=== PATIENT | male | born 1940 | race Caucasian/White ===

== ENCOUNTER 2024-01-06 09:36 | Outpatient (CLI) | payer MEDICARE, OTHER, SELFPAY ==
--- NOTE | 2024-01-06 09:43 | USCV_ITS ---
Bertrand Alexander Age: 83 Gender: M : 1940 Exam Date: 01/06/2024 10:59 Ordering Phys: Carmelo David DO Technologist: Lucien Slaughter Exam Location: [facility] [place] Indication: LE Swelling and Pain RIGHT LEFT Brachial 193.00 mmHg Brachial mmHg Pressure (mmHg) Waveform Pressure (mmHg) Waveform 205.00 EDUCATION CONSULTANT 186.00 203.00 DPA 193.00 1.06 Ankle/Brachial Index 1.00 152.00 Pre-Exercise Toe Pressure 170.00 0.79 Pre-Exercise Toe/Brachial Index 0.88 FINDINGS Resting CHRIS 1.06 on the right side and 1.0 on the left side Resting TBI of 0.79 on the right side and 0.88 on the left side CONCLUSIONS Normal resting ABIs and TBIs bilaterally No evidence of any significant arterial obstruction, based on the above findings. Dr Caitie Ruffin MD [facility] (Electronically Signed) Final Date: 07 January 2024 16:52 S
== END 2024-01-06 09:37 | disposition home or self-care (01) ==
LOC: RAD 09:38
PROVIDERS: Family Provider Family Medicine; Visit Provider Electrodiagnostic Medicine
DX: R22.41 Localized swelling, mass and lump, right lower limb (principal); I73.9 Peripheral vascular disease, unspecified
CPT/HCPCS: 93922

== ENCOUNTER → 2024-07-04 13:24 | Outpatient (BNVA) | payer MEDICARE, OTHER, SELFPAY | PROVIDERS: Family Provider Family Medicine; PCP Electrodiagnostic Medicine; Visit Provider Student in an Organized Health Care Education/Training Program | DX: M25.561 Pain in right knee (principal); M17.0 Bilateral primary osteoarthritis of knee | CPT/HCPCS: 73560; 73565 ==

== ENCOUNTER 2024-07-14 09:05 | Outpatient (CLI) | payer MEDICARE, OTHER, SELFPAY ==
--- NOTE | 2024-07-14 09:00 | CT_ITS ---
WS: [id number] CT RIGHT knee, noncontrast HISTORY: RIGHT TOTAL KNEE ARTHROPLASTY TECHNIQUE: Protocol for [facility] total knee replacement has been obtained. This includes axial imaging th rough the RIGHT hip, RIGHT knee and RIGHT ankle. DLP: 1094.72 mGy.cm COMPARISON: Radiograph 07/04/2024 Pelvis: Degenerative air in the SI joints. Mild osteopenia. No destructive bone lesions. Moderate sig moid diverticulosis. RIGHT knee: Moderate tricompartment osteoarthritis. Joint spaces are narrowed with small marginal ost eophytes. No fracture. Small suprapatellar joint effusion. RIGHT ankle: Negative. CT/CT knee RT [facility] [id number] IMPRESSION: CT imaging provided for [facility] robotic total knee replacement.
== END 2024-07-14 09:06 | disposition home or self-care (01) ==
LOC: RAD 09:06
PROVIDERS: Family Provider Family Medicine; PCP Electrodiagnostic Medicine; Visit Provider Student in an Organized Health Care Education/Training Program
DX: M17.11 Unilateral primary osteoarthritis, right knee (principal); Z96.651 Presence of right artificial knee joint; M25.461 Effusion, right knee; M25.761 Osteophyte, right knee
CPT/HCPCS: 73700

== ENCOUNTER 2024-07-31 10:22 | Outpatient (CLI) | payer MEDICARE, OTHER, SELFPAY ==
[2024-07-31 10:58] LABS: Basophils % 0.3 %; Eosinophils # 0.1 10^3/uL (0.0-0.8); Eosinophils % 0.9 %; Hematocrit 39.7 % (37-53); Lymphocytes # 1.2 10^3/uL (0.8-4.8); Lymphocytes % 12.5 %; Mean Corpuscular Hemoglobin 31.8 pg (27-33); Mean Corpuscular Volume 96.4 fl (82-101); Monocytes # 0.8 10^3/uL (0.2-0.9); Monocytes % 8.2 %; Neutrophils # 7.43 10^3/uL (1.8-7.7); Neutrophils % 77.8 %; Nucleated Red Blood Cells % 0 %; Platelet Count 191 10^3/cmm (157-399); Red Blood Count 4.12 10^6/uL (3.85-5.65); Red Cell Distribution Width 12.9 % (12.1-15.1); White Blood Count 9.55 10^3/uL (3.29-11.43)
[2024-07-31 11:01] LABS: Bilirubin Urine Negative (Negative); Blood Urine Negative (Negative); Glucose Urine UA Negative (Normal); Ketones Urine Negative (Negative); Leukocyte Esterase Urine Negative (Negative); Nitrate Urine Negative (Negative); Protein Urine Negative (Negative); Specific Gravity, Urine 1.021 (1.005-1.030); Urine Appearance Clear (CLEAR); Urine Color Yellow (Yellow); Urobilinogen Urine 0.2 mg/dL (Negative); pH Urine 5.5 (5-7)
[2024-07-31 11:09] LABS: Add Urine Microscopic? YES; Bacteria Urine None Seen /hpf; Hyaline Casts Urine 0.81 /lpf; RBC Urine 0-2 /hpf (0-2); Squamous Epithelial Cell Urine 0-5 /hpf (0-5); WBC Urine 0-5 /hpf (0-5)
[2024-07-31 11:58] LABS: Alanine Aminotransferase 20 U/L (0-41); Albumin Level 4.1 g/dL (3.5-5.2); Alkaline Phosphatase 67 U/L (40-130); Anion Gap 13.2 (5-19); Aspartate Amino Transferase 14 U/L (0-40); Blood Urea Nitrogen 22 mg/dL (8-23); Calcium 8.9 mg/dL (8.5-10.5); Carbon Dioxide 27 mmol/L (22-29); Chloride 106 mmol/L (98-107); Globulin 2.2 g/dL (1.3-4.6); Glucose 101 mg/dL (65-115); Osmolality Calculated 297 mOsm/kg (285-295); Potassium 4.2 mmol/L (3.5-5.1); Sodium 142 mmol/L (136-145); Total Bilirubin 0.3 mg/dL (0.15-1.2); Total Protein 6.3 g/dL (6.6-8.7)
== END 2024-07-31 10:23 | disposition home or self-care (01) ==
LOC: LAB 10:23
PROVIDERS: Family Provider Family Medicine; PCP Electrodiagnostic Medicine; Visit Provider Student in an Organized Health Care Education/Training Program
DX: Z01.818 Encounter for other preprocedural examination (principal)
CPT/HCPCS: 36415; 80053; 81001; 85025

== ENCOUNTER → 2024-08-07 11:46 | Outpatient (BNVA) | payer MEDICARE, OTHER, SELFPAY | PROVIDERS: Family Provider Family Medicine; PCP Electrodiagnostic Medicine; Visit Provider Family Medicine | DX: Z01.818 Encounter for other preprocedural examination (principal) | CPT/HCPCS: 93005 ==

== ENCOUNTER 2024-08-16 10:11 | Observation (INO) | payer MEDICARE, OTHER, SELFPAY ==
[2024-08-16] VITALS (17 sets, daily range): BP systolic 134–197; BP diastolic 74–95; PULSE 62–81; RESP 14–19; TEMP 36.2–36.8; O2SAT 91–98; BMI 30.8
[2024-08-16] MEDS: lactated ringers 500 ML IV (06:29)
[2024-08-16] MEDS: acetaminophen 1,000 MG/100 ML PIGGYBACK 400 MG IV ×3 (06:30→21:29)
[2024-08-16] MEDS: ketorolac 30 mg/mL INJ IVP (06:30)
[2024-08-16] MEDS: sodium chloride 0.9% 1,000 ML 30 ML IV (06:39)
[2024-08-16 07:05] LABS: Basophils # 0.1 10^3/uL (0.0-0.1); Basophils % 0.8 %; Eosinophils # 0.1 10^3/uL (0.0-0.8); Hematocrit 38.9 % (37-53); Lymphocytes # 1.4 10^3/uL (0.8-4.8); Lymphocytes % 22.1 %; Mean Corpuscular HGB Conc 33.2 g/dL (30-55); Mean Corpuscular Hemoglobin 31.7 pg (27-33); Mean Corpuscular Volume 95.6 fl (82-101); Mean Platelet Volume 9.2 fL (7.4-10.4); Monocytes # 0.6 10^3/uL (0.2-0.9); Monocytes % 8.8 %; Neutrophils # 4.21 10^3/uL (1.8-7.7); Neutrophils % 65.8 %; Nucleated Red Blood Cells % 0 %; Platelet Count 181 10^3/cmm (157-399); Red Blood Count 4.07 10^6/uL (3.85-5.65); Red Cell Distribution Width 12.9 % (12.1-15.1); White Blood Count 6.39 10^3/uL (3.29-11.43)
--- NOTE | 2024-08-16 07:11 | W.PM.OPSFHP ---
Same Day Surgery H&P Indication for Procedure/HPI DATE OF PROCEDURE: August 16, 2024 CHIEF COMPLAINT/INDICATIONFOR SURGICAL PROCEDURE: Right knee degenerative joint disease PREOP DIAGNOSIS: Right knee degenerative joint disease PLANNED PROCEDURE: Operation Date: 08/16/24 07:45 Proposed Procedures p Norman Robot Total Knee Arthroplasty(Right) - Gonzalo Wilson DO Medications/Allergies* Home Medications Medication Instructions Recorded Confirmed Type acetaminophen 650 mg 650 mg PO Q12H 07/04/24 08/15/24 History tablet,extended release (Arthritis Pain Relief (acetaminophen) ER) antiarthritic combination no.2 900 900 mg PO DAILY 07/04/24 08/15/24 History mg tablet (glucosamine-chondroitin) atorvastatin 40 mg tablet 40 mg PO DAILY 07/04/24 08/15/24 History brimonidine 0.2 % eye drops 1 drp ophthalmic (eye) Q8H 07/04/24 08/15/24 History lisinopril 40 mg tablet 40 mg PO DAILY 07/04/24 08/15/24 History multivitamin (Daily Multi-Vitamin 1 tab PO DAILY 07/04/24 08/15/24 History tablet) niacin 400 mg (inositol niacinate 1 cap PO DAILY 07/04/24 08/15/24 History 500 mg) capsule vit C,E,zinc,copper-ixsrk9o 250 1 cap PO DAILY 07/04/24 08/15/24 History mg-lutein 5 mg-zeaxanthin 1 mg capsule (50 Plus Adult Eye Health) aspirin 325 mg tablet 325 mg PO DAILY 08/07/24 08/15/24 History metoprolol tartrate 100 mg tablet 100 mg PO BID 08/07/24 08/15/24 History Allergies/Adverse Reactions Allergy/AdvReac Type Severity Reaction Status Date / Time diphenhydramine Allergy Intermediate confusion Verified 08/16/24 06:32 [From Benadryl Allergy] Sulfa (Sulfonamide Allergy Intermediate ALGY-Hives Verified 08/16/24 06:32 Antibiotics) sulfamethoxazole Allergy Intermediate ALGY-Rash Verified 08/16/24 06:32 [From Bactrim] trimethoprim [From Bactrim] Allergy Intermediate ALGY-Rash Verified 08/16/24 06:32 Pertinent History/Comorbid Conditions* Social History Smoking and tobacco/nicotine status: never used tobacco/nicotine Pertinent Exam Findings alert, oriented x 3, operative site marked and procedure specific exam findings Please refer to detailed orthopedic examination on 07/04/2024: Right knee examination: Examination of the right knee demonstrates patient has a 5 to 10 degree varus deformity. This is correctable on examination and pain associated with this. Patient is stable with Darnell's examination. He has decreased range of motion of the knee and guarding secondary to pain and discomfort. It is diffusely about the knee with crepitus underneath the patella on knee range of motion as well as tenderness over the retropatellar space. Patient has tenderness to palpation over the medial and lateral joint lines. Stable varus valgus stress. Mild palpable joint effusion. Recommendations Surgery/Procedure today Other Plans: Patient is here today is clear the preoperative clearance process and ready proceed with a right total knee arthroplasty?Norman robotic assisted. Has been medically optimized through the preoperative clinic. His last injection was back in March is over 90 days out from his injection. He is in no change in his health and is clear the preoperative clearance process. At this point time they understand the ins and outs of procedure the risk benefits complication alternatives of surgery and through shared decision-making elects proceed with surgical invention today. All questions have been answered at this time. Coding Level of Care Code Acute Code for Chg Fwd
[2024-08-16 07:16] LABS: Blood Urea Nitrogen 27 mg/dL (8-23); Calcium 8.7 mg/dL (8.5-10.5); Carbon Dioxide 25 mmol/L (22-29); Chloride 109 mmol/L (98-107); Creatinine Clr Calc Pharmacy 47.6479; Glucose 108 mg/dL (65-115); Osmolality Calculated 302 mOsm/kg (285-295); Sodium 143 mmol/L (136-145)
[2024-08-16 07:22] LABS: Anion Gap 13.3 (5-19); Potassium 4.3 mmol/L (3.5-5.1)
--- NOTE | 2024-08-16 07:51 | ANES.PREANE2 ---
Pre-Anesthetic Assessment Height/Weight: Height 1.78 m Weight 97.522 kg Temp Pulse Resp BP Pulse Ox O2 Del Method 97.6 F 62 18 197/90 96 Room Air 08/16/24 06:25 08/16/24 06:25 08/16/24 06:25 08/16/24 06:25 08/16/24 06:25 08/16/24 06:25 Preop Diagnosis: Right knee degenerative joint disease Operation Date: 08/16/24 07:45 Proposed Procedures p Norman Robot Total Knee Arthroplasty(Right) - Gonzalo Wilson DO Familial anesthetic complications: None Was Beta Tracee taken within 24 hours: Yes Was Clonidine taken within 24 hours: N/A Last intake: Intake Last Liquid Date 08/15/24 Last Liquid Time 23:00 Last Solid Date 08/15/24 Last Solid Time 23:00 Social No alcohol and No tobacco Exam alert, oriented x 3, clear to auscultation bilaterally and regular rate & rhythm Airway Mallampati: Class II Dentition: false (upper) and other (2 lowers broken) CV/HEM Hypertension Metabolic Hyperlipidemia Anesthetic Plan ASA status: 2 Anesthesia: Regional (specify below) Risk of > 500 ml blood loss (7ml/kg in children): No Medications/Allergies Home Medications Medication Instructions Recorded Confirmed Last Taken Type acetaminophen 650 mg 650 mg PO Q12H 07/04/24 08/15/24 08/15/24 History tablet,extended release (Arthritis Pain Relief (acetaminophen) ER) antiarthritic combination no.2 900 900 mg PO DAILY 07/04/24 08/15/24 08/15/24 History mg tablet (glucosamine-chondroitin) atorvastatin 40 mg tablet 40 mg PO DAILY 07/04/24 08/15/24 08/15/24 History brimonidine 0.2 % eye drops 1 drp ophthalmic (eye) Q8H 07/04/24 08/15/24 08/15/24 History lisinopril 40 mg tablet 40 mg PO DAILY 07/04/24 08/15/24 08/15/24 History multivitamin (Daily Multi-Vitamin 1 tab PO DAILY 07/04/24 08/15/24 08/09/24 History tablet) niacin 400 mg (inositol niacinate 1 cap PO DAILY 07/04/24 08/15/24 08/15/24 History 500 mg) capsule vit C,E,zinc,copper-eftfa0k 250 1 cap PO DAILY 07/04/24 08/15/24 08/09/24 History mg-lutein 5 mg-zeaxanthin 1 mg capsule (50 Plus Adult Eye Health) aspirin 325 mg tablet 325 mg PO DAILY 08/07/24 08/15/24 08/11/24 History metoprolol tartrate 100 mg tablet 100 mg PO BID 08/07/24 08/15/24 08/16/24 History Allergies Allergy/AdvReac Type Severity Reaction Status Date / Time diphenhydramine Allergy Intermediate confusion Verified 08/16/24 06:32 [From Benadryl Allergy] Sulfa (Sulfonamide Allergy Intermediate ALGY-Hives Verified 08/16/24 06:32 Antibiotics) sulfamethoxazole Allergy Intermediate ALGY-Rash Verified 08/16/24 06:32 [From Bactrim] trimethoprim [From Bactrim] Allergy Intermediate ALGY-Rash Verified 08/16/24 06:32 [facility] Anesthesia Social History Smoking and tobacco/nicotine status: never used tobacco/nicotine Data Anesthesia 08/16/24 06:45 08/16/24 06:45 Short CBC 08/16/24 Range/Units 06:45 WBC 6.39 (3.29-11.43) 10^3/uL Hgb 12.90 (11.27-16.99) g/dL Hct 38.9 (37-53) % MCV 95.6 (82-101) fl Plt Count 181 (157-399) 10^3/cmm Neut % (Auto) 65.8 % Neut # (Auto) 4.21 (1.8-7.7) 10^3/uL BMP 08/16/24 06:45 Sodium 143 Potassium 4.3 Chloride 109 H Carbon Dioxide 25 BUN 27 H Creatinine 1.4 H Glucose 108 Calcium 8.7 Blood Bank 08/16/24 06:35 Blood Type A Positive Rho(D) Type Rh positive Antibody Screen Negative Cardiac Studies: No Data to Display
--- NOTE | 2024-08-16 07:52 | ANES.PROC ---
Anesthesia Procedures Procedure/Date: 08/16/24 Nerve Block ^: Nerve Block 1: Main Anesthesia: general anesthesia Time Out Performed: Yes Consent: requested by attending/covering physician, from patient, from other, risks and benefits reviewed and patient agrees to proceed Nerve block location: adductor canal (R) Anesthesia monitors applied: pulse oximetry, EKG, BP cuff and oxygen Nerve block position: supine Anesthetic Used: ropivicaine 0.5% (30 ml) and with decadron (4 mg) Ultrasound used to: recognize landmarks and visualize and ID femerol nerve Nerve Stimulator Used?: No Interscalene/Femoral BLK: 4 stimuplex 21 g needle used for position and inplane approach, visualize local anesthetic spread and no vascular puncture identified Injection: neg aspiration of heme Patient Tolerated Procedure: well Complications: none
--- NOTE | 2024-08-16 08:14 | PC.NURSE ---
pt prepared for adductor canal block for right total knee surgery. Pt was placed on 2L nasal cannula, heart sensors were placed and oxygen sensor was placed for monitoring. The time out was performed identifying pt name and at 0745. The insertion area was cleaned and prepped for the injection. The block was placed using ultrasound 30cc of 0.5% ropivicain was injected into the right adductor canal for pt post surgery pain control
[2024-08-16] MEDS: ceFAZolin 2,000 MG in sodium chloride 0.9% (plus) 50 ML 100 MG IV (08:15)
[2024-08-16] MEDS: tranexamic acid 1,000 mg/10mL SDV 1000 MG IV (08:35)
[2024-08-16] MEDS: ROPivacaine 0.2% Premix 100 mL 200 MG XX (09:03)
[2024-08-16] MEDS: tranexamic acid 1,000 mg/10mL SDV 1000 MG IRRIGATION (09:04)
[2024-08-16] MEDS: ketorolac 30 mg/mL INJ XX (09:05)
[2024-08-16] MEDS: EPINEPHrine 1 mg/mL INJ XX (09:05)
[2024-08-16] MEDS: vancomycin 1,000 MG SDV 1000 MG XX (09:06)
--- NOTE | 2024-08-16 10:28 | XRR_ITS ---
PROCEDURE INFORMATION: Exam: XR Right Knee Exam date and time: 08/16/2024 10:39 AM Age: 84 years old Clinical indication: Device placement; Joint replacement hardware; Prior surgery; Surgery date: Post-operative (0-2 days); Surgery type: R tka; Additional info: S/P R tka TECHNIQUE: Imaging protocol: Radiologic exam of the right knee. Views: 1 or 2 views. COMPARISON: 1. CT knee RT [facility] [id number] 07/14/2024 9:16 AM 2. CR XR knees AP WB w RT lmt ORTH 07/04/2024 1:41 PM FINDINGS: Bones/joints: Interval knee arthroplasty. No additional new appearing displaced fracture nor dislocation seen. Soft tissues: Gas, fluid project about knee. XR/XR knee RT 1-2V [id number] IMPRESSION: Post knee arthroplasty.
--- NOTE | 2024-08-16 10:29 | P.OP_ITS ---
Operative Report Date of procedure: August 16, 2024 Surgeon: Gonzalo Wilson DO Camera Machinist: Miguel Wilson PA-C: PA was necessary for assistance in this case with leg positioning retraction and protection of neurovascular structures as well as assistance in implantation wound closure and dressing application. Procedure: Preoperative diagnosis: Right knee degenerative joint disease Post-op diagnosis: Same Procedure done: Right total knee arthroplasty, cemented?robotic assisted Norman Implants: [place] triathlon size 5 femur CR cemented?Right [place] triathlon size? 6 tibia universal baseplate cemented Wilber triathlon asymmetric patella size 32 mm [place] triathlon polyethylene 10mm Surgeon: Gonzalo Wilson DO Estimated blood?loss: 50 mL Tourniquet 59min IV fluids: 1300 mL Urine output: 300 mL Complications: None Condition: stable Disposition: floor Brief History: Patient is a 84-year-old male with with chronic?Right knee degenerative joint di sease.? Patient has been worked up in the outpatient setting in the orthopedic office at this point time through shared decision making given? [id number] arthritis as well as failed conservative treatment, and pt would?like to proceed with a?Right total knee arthroplasty.? Through shared decision making elected to proceed with surgical intervention for?Right total knee arthroplasty.? We talked about continued conservative treatment and surgical intervention as far as the risk benefits complications alternatives surgical and nonsurgical treatment options.? At this point time understanding patient risks with surgery he agrees to proceed with surgical intervention.? Once again? risk with surgery include but are not?limited to make it better make it worse blood clot, heart attack, stroke, on the table, infection, injury to nerves or vessels, persistent pain, arthrofibrosis, implant failure.? Understanding these risks patient agrees to proceed with surgical intervention consent was obtained in the office.? All questions answered. Procedure: Patient was seen and evaluated in the preoperative holding area.? Consent was reviewed and signed with patient with plan for?Right total knee arthroplasty.? All questions answered.? Correct extremity marked.? Patient seen and evaluated by the anesthesia department and once cleared for surgery was taken back to the operative suite.? Patient was placed into a supine position on the OR table.? All bony prominences were well-padded.? Patient was appropriately secured to the bed.? Patient underwent anesthesia per the anesthesia department.? Patient received spinal anesthesia and? Benavidez catheter was placed.? A nonsterile tourniquet was applied to the?Right thigh.? At this point in time a final timeout performed.? Patient received appropriate preoperative antibiotics and TXA. Next the?Right?lower extremity was then prepped and draped in standard orthopedic fashion. Esmarch tourniquet was used exsanguinate the?Right?lower extremity.? Tourniquet was insufflated to 250 mmHg. A standard anterior incision was made over midline of the knee.? Sharp scalpel excision through skin and subcutaneous tissue full-thickness skin flaps were made.? Fascia was elevated off of the extensor retinaculum was stable with medial parapatellar arthrotomy was then made.? The performed standard sequential releases..? Immediately on entry into the joint patient was found to have severe eburnated bone and tricompartmental arthritic changes noted.? With significant osteophyte formation.? Next the the patella was then stuffed and the knee was th en flexed.?? Kyle was placed superiorly around the anterior aspect of the femur this was freed of synovium and I subsequently then placed by 2 femur pins to establish my femur arrays for the Norman robot.? These were then placed bicortically and? femur array was then appropriately secured with appropriate visualization.? Next attention was turned towards the tibial rays.? These were then drilled sequentially bicortically in parallel fashion and intraincisional.? I then placed my guide as well as my tibial array on in place.? This was appropriately secured and had excellent visualization with the Norman robot.? Next the tibial checkpoint as well as femur checkpoint were then placed.? At this point time I then subsequently established my head center as well as my medial?lateral malleoli as well as my checkpoints.? Next utilizing standard Norman technology I then mapped out the appropriate points and confirmation points around the femur as well as the tibia in standard fashion.? Once this was then done I then removed all osteophytes in preparation for dynamic testing.? All osteophytes were removed as well as I removed the ACL and the PCL was excised due to its significant tearing and degeneration noted.? At this point time the knee was brought into full extension and we performed our standard evaluation of our gap balancing stressing his?ligaments and extension as well as flexion a ppropriate adjustments were made to have appropriate gap balancing in both flexion and extension.? This plan for final counts.? We get a preoperative plan evaluating our implants which was a size 5 femur and a size 6 tibia.? Next we brought in the Norman robot and sequentially made our femur cuts.? All excess bony cuts were then removed.? Finally we made our tibial cut.? Once this was done a standard PCL retractor was then placed into this position I excised the medial and?lateral meniscus.? The tibial cut was then subsequently removed all excess bony debris was removed.? I then utilized a?lamina snow maker and remove the posterior osteophytes.? At this point time sized the tibia and confirmed this was a size 6.? I utilized our blunt probe to establish rotation of tibial implant.? Once this was done I then placed my tibia size 6 trial in appropriate position and then subsequently placed tibial pins to hold this into place placed a size 10 mm poly as well as a size 5 femur which was appropriately impacted in place knee was then subsequently brought into extension. Trials were then assessed,? this was stable with varus valgus stress in extension as well as had symmetrical translation when brought into flexion demonstrating symmetrical gaps. I had excellent balance gaps in flexion and extension with varus and valgus stresses.? At this point I was satisfied with these implants these were then verified and opened on the back table size 6 tibia, size 5 femur,? size 10 mm polythickness.? We did confirm appropriate gap balancing and stresses as well as alignment utilizing? Norman and were satisfied with this plan.? ?At this point time with my trials in place I then towel clip the patella everted this made appropriate measurements subsequently utilizing freehand technique performed by patellar resurfacing this was confirmed to be appropriate resection and subsequently sized to be a 32 mm asymmetric.? My drill peg guides were then clamped and appropriate position and appropriate position in the patella for appropriate tracking and parallel with the joint.? Pegs were drilled trial implant was placed and the knee was then subsequently ranged and found to have excellent patellar tracking.? Femur pegs were then drilled.? All checkpoints as well as guidepins and arrays were removed and appropriate counts made. Satisfied with our tibial placement rotation I then utilized the keel punch and prepped the tibia.? At this point time all of our trial implants were removed.? The wound bed? was thoroughly irrigated and dried and prepped for cementation.? Cement was mixed on the back table.? Once cement was ready this was then covered onto the tibia and the tibial baseplate was then impacted and all excess cement was removed.? Next the polyethylene was then impacted into place on the tibial baseplate.? Next cement was placed onto the femur as well as under the femur implants and impacted in to place and all excess cement was extruded and removed.? Knee was taken into full extension? to clear all excess cement was removed.? Warm saline was placed over the joint.? I then towel clip patella and dried for cementation. cemented the patella into place.? This was all clamped and the cement was allowed to cure.? Thorough irrigation performed with pulse?lavage.? I then placed my periarticular injection while the cement was curing.? Once cured the knee was taken through range of motion and had excellent stability and gaps were balanced in flexion and extension.? Tourniquet was then deflated. hemostasis satisfactory with electrocautery.? Vancomycin powder was placed in the wound bed for infection prophylaxis. Next I then subsequently closed the capsule with Ethibond suture as well as a running strata fix suture.? Knee was then taken through range of motion 20 times.? Next the skin was then closed in?layered fashion of running stratifix sutures of deep and subcutenous tissue and skin.? ?closed in flexion and Prineo glue was then placed over the incision this allowed to cure.? Incision was covered with rodolfo incisional VAC dressing, with ABDs soft roll and Eugene wrap.? Patient was then awakened from anesthesia and taken to PACU in stable condition. Disposition: Patient taken to PACU in stable condition will be admitted to the floor for pain control PT/OT weight-bear as tolerated?Right?lower extremity dressing changes as needed, DVT prophylaxis. Pain control. Patient will receive appropriate postoperative antibiotics. patient will be seen today by the internal medicine team for medical management.? Patient will follow up with the office in 2 weeks.? Patient understands agrees with current plan.? All questions answered.
--- NOTE | 2024-08-16 10:32 | P.BOP_ITS ---
Date of Procedure: [August 16, 2024] Surgeon: [Dr. Wilson DO] Sales Associate Cashier(s): [Miguel Wilson PA-C] Procedure(s) performed: [Right total knee arthroplasty with Norman robotic assist] Findings of the procedure(s): [Right knee degenerative joint disease. procedure went well and as planned] Estimated blood loss: [50 mL] Specimen(s) removed: [N/A] Post-operative diagnosis: [Right knee degenerative joint disease]
--- NOTE | 2024-08-16 10:34 | PM.PACU ---
PACU note Narrative: Patient 84-year-old male just underwent a right total knee arthroplasty. Pt transferred to PACU in stable condition. Dressing is dry. pt is awake and alert. Distal pulses are palpable toes are warm and well-perfused. Cap refill is normal and under 2 seconds. Unable to assess motor or sensation due to residual block. pain is controlled. Exam: awake Disposition: admitted
--- NOTE | 2024-08-16 11:05 | ANE.PACU2 ---
Inpatient post-anesthesia follow up: Airway intact: Yes Vital signs: Temperature 98.3 F Pulse Rate 77 Respiratory Rate 18 Blood Pressure 182/95 Pulse Oximetry 95 Oxygen Delivery Me thod Room Air Oxygen Flow Rate 3 Fraction of Inspir ed Oxygen Hydration adequate: Yes Nausea and vomiting: No Pain level: 1 Mental status: Baseline
--- NOTE | 2024-08-16 11:36 | P.CONIM_ITS ---
Providers/Reason For Consult 2 Consulting Physician/Specialty*: Javi Wallace MD hospitalist Reason for Consult*: Medical management Requesting Physician: Dr. Wilson Attending Physician: Gonzalo Wilson DO Primary Care Provider: Carmelo David DO History of Present Illness History of Present Illness Bertrand Alexander is a 84 year old male with degenerative joint of the knee which underwent a right total knee arthroplasty today without complication. I am seeing him directly postoperative, and he reports his pain is under control. Estimated blood loss 50, received spinal anesthesia, Eliquis intended for DVT prophylaxis. Patient reports no history of coronary disease, stroke, lung disease. He is not sure why he is on aspirin daily. Review of Systems 2 General: Reports: 10 or more systems reviewed and unremarkable except in HPI and below Card: Denies: chest pain Resp: Denies: dyspnea GI: Denies: hematochezia or melena Medications/Allergies Home Medications Medication Instructions Recorded Confirmed Last Taken Type acetaminophen 650 mg 650 mg PO Q12H 07/04/24 08/15/24 08/15/24 History tablet,extended release (Arthritis Pain Relief (acetaminophen) ER) antiarthritic combination no.2 900 900 mg PO DAILY 07/04/24 08/15/24 08/15/24 History mg tablet (glucosamine-chondroitin) atorvastatin 40 mg tablet 40 mg PO DAILY 07/04/24 08/15/24 08/15/24 History brimonidine 0.2 % eye drops 1 drp ophthalmic (eye) Q8H 07/04/24 08/15/24 08/15/24 History lisinopril 40 mg tablet 40 mg PO DAILY 07/04/24 08/15/24 08/15/24 History multivitamin (Daily Multi-Vitamin 1 tab PO DAILY 07/04/24 08/15/24 08/09/24 History tablet) niacin 400 mg (inositol niacinate 1 cap PO DAILY 07/04/24 08/15/24 08/15/24 History 500 mg) capsule vit C,E,zinc,copper-vhvrp0i 250 1 cap PO DAILY 07/04/24 08/15/24 08/09/24 History mg-lutein 5 mg-zeaxanthin 1 mg capsule (50 Plus Adult Eye Health) aspirin 325 mg tablet 325 mg PO DAILY 08/07/24 08/15/24 08/11/24 History metoprolol tartrate 100 mg tablet 100 mg PO BID 08/07/24 08/15/24 08/16/24 History Allergies Allergy/AdvReac Type Severity Reaction Status Date / Time diphenhydramine Allergy Intermediate confusion Verified 08/16/24 06:32 [From Benadryl Allergy] Sulfa (Sulfonamide Allergy Intermediate ALGY-Hives Verified 08/16/24 06:32 Antibiotics) sulfamethoxazole Allergy Intermediate ALGY-Rash Verified 08/16/24 06:32 [From Bactrim] trimethoprim [From Bactrim] Allergy Intermediate ALGY-Rash Verified 08/16/24 06:32 PFSH Acute 2 PFSH: Medical History (Updated 08/16/24 @ 12:55 by Javi Wallace MD) Hyperlipidemia Hypertension Surgical History (Updated 08/16/24 @ 12:53 by Javi Wallace MD) History of hernia repair Social History (Updated 08/16/24 @ 12:53 by Javi Wallace MD) Smoking and tobacco/nicotine status: never used tobacco/nicotine Alcohol intake: never Substance/Drug Use: never Vitals/I&O/Wt Last Vital Signs Temp 97.9 F 08/16/24 11:00 Pulse 78 08/16/24 11:05 Resp 14 08/16/24 11:05 BP 158/81 08/16/24 11:05 Pulse Ox 97 08/16/24 11:05 O2 Del Method Nasal Cannula 08/16/24 11:05 O2 Flow Rate 3 08/16/24 11:05 08/15/24 08/16/24 08/16/24 22:59 06:59 14:59 Intake Total 100 / 100 1400 / 1400 Output Total 350 / 350 Balance 100 / 100 1050 / 1050 Weight last 48 hrs Weight 97.522 kg Weight 97.522 kg Physical Exam 2 Narrative: General exam is a white male, denying any concerns currently, with and son at bedside. HEENT: Oropharynx clear Neck is supple Cardiovascular regular rate and rhythm, no murmur Lungs clear no wheezing or crackles Abdomen is soft, nontender, no obvious organomegaly exam is deferred Extremities right knee with dressing. Distal cap refill intact. Left with no cyanosis clubbing or edema. Skin no rash Neuro no obvious focal deficits Urinary Catheter Management: Benavidez: Cath Placed During This Visit: yes Urinary Catheter Date of Insertion: 08/16/24 Urinary Catheter Time of Insertion: 08:29 Data 08/16/24 06:45 08/16/24 06:45 Other Labs: EKG done preoperatively demonstrated sinus rhythm, normal axis, no acute changes which I reviewed A&P Assessment and plan (1) Right knee DJD: Directly postoperative right total knee arthroplasty Doing well Eliquis for DVT prophylaxis CBC, BMP tomorrow Hydration overnight (2) Hypertension: Patient with history of hypertension Continue beta-alessio Review blood pressures prior to restarting his lisinopril tomorrow. Plan Patient reports taking aspirin daily. Will discontinue this in the face of Eliquis. He reports no atherosclerotic disease or particular indication for it. Discussed with him to visit with his primary on discharge regarding need to resume this after Eliquis course is completed. Thank you for this consultation Consult Attestations 2 Medical Necessity Statement: As per primary Diagnoses Right knee DJD M17.11 Hypertension I10 Time Spent (min) 46
[2024-08-16] MEDS: chlorhexidine gluconate 0.12% Btl 473 mL 30 ML MUCOUS MEM ×3 (13:11→21:30)
[2024-08-16] MEDS: tranexamic acid 1,000 MG/100 ML PREMIX 600 MG IV (13:51)
[2024-08-16] MEDS: ceFAZolin 2,000 mg SDV 2000 MG IVP ×2 (14:58→23:29)
[2024-08-16] MEDS: water for injection-sterile 10 ML 100 ML (15:00)
[2024-08-16] MEDS: sennosides-docusate Tablet 2 TAB PO (16:14)
[2024-08-16] MEDS: mupirocin oint 22 gm 1 APPLIC NASAL (16:14)
[2024-08-16] MEDS: calcium carb-vit d 600mg/400unit 1 Tablet 1 EACH PO (16:14)
[2024-08-16] MEDS: metoprolol tartrate 50 mg Tablet 100 MG PO (16:15)
[2024-08-16] MEDS: lactated ringers 1,000 ML 75 ML IV (16:15)
[2024-08-16] MEDS: docusate sodium 100 mg Capsule PO (16:15)
[2024-08-16] MEDS: iron polysaccharide complex 150 mg Capsule PO (16:15)
[2024-08-16] MEDS: oxyCODONE 5 mg IR Tab/Cap PO (21:30)
[2024-08-16] MEDS: ketorolac 30 mg/mL INJ 15 MG IVP (23:31)
[2024-08-17] VITALS (8 sets, daily range): BP systolic 156–177; BP diastolic 66–79; PULSE 55–77; RESP 16–20; TEMP 36.7–36.9; O2SAT 95–96
[2024-08-17] MEDS: HYDROmorphone 1 mg/mL INJ 1 mL 0.5 MG IVP (04:20)
--- NOTE | 2024-08-17 05:31 | PC.NURSE ---
At 2130 pt asked for pain medication. This RN gave 5mg Oxycodone IR. When this RN went to reassess pain this RN noticied the documentation did not save. Later in the shift the aid notified this RN that pt was requesting more pain medication. This RN administered 0.5mg dilualidid IVP and wasted the other 0.5mg with an HEDIS NURSE at the [facility]. Again when this RN went to reassess pain the documentation was not saved. This RN made charge aware of the situation. This RN will verify medications are documented within a timely manner. Pt is resting in bed at this time with at bedside.
[2024-08-17] MEDS: acetaminophen 1,000 MG/100 ML PIGGYBACK 400 MG IV (05:41)
[2024-08-17 06:27] LABS: Basophils % 0.2 %; Eosinophils % 0.1 %; Lymphocytes # 1.3 10^3/uL (0.8-4.8); Lymphocytes % 8.6 %; Mean Corpuscular Hemoglobin 31.8 pg (27-33); Mean Corpuscular Volume 96.4 fl (82-101); Mean Platelet Volume 9.5 fL (7.4-10.4); Monocytes % 6.7 %; Neutrophils # 12.34 10^3/uL (1.8-7.7); Neutrophils % 83.9 %; Nucleated Red Blood Cells % 0 %; Platelet Count 170 10^3/cmm (157-399); Red Blood Count 3.84 10^6/uL (3.85-5.65); Red Cell Distribution Width 12.9 % (12.1-15.1)
[2024-08-17 06:51] LABS: Anion Gap 13.9 (5-19); Blood Urea Nitrogen 22 mg/dL (8-23); Calcium 8.5 mg/dL (8.5-10.5); Carbon Dioxide 24 mmol/L (22-29); Chloride 107 mmol/L (98-107); Creatinine Clr Calc Pharmacy 58.7561; Glucose 111 mg/dL (65-115); Osmolality Calculated 296 mOsm/kg (285-295); Potassium 3.9 mmol/L (3.5-5.1); Sodium 141 mmol/L (136-145)
--- NOTE | 2024-08-17 08:30 | P.PN_ITS ---
Documented by User: BANDAR Beverly STDJOSE MANUEL 08/17/24 09:07 Subjective 2 Subjective: Patient is status post-op day #1 of right total knee arthroplasty. Patient has been very eager to go home and is doing great with PT. Benavidez was removed this morning. Patient's BP has been stable but elevated, will add back his lisinopril. Patient denies chest pain, SOB, headaches, abdominal, or fevers. Vitals/I&O/Wt Last Vital Signs Temp 98.4 F 08/17/24 07:36 Pulse 77 08/17/24 07:36 Resp 20 H 08/17/24 07:36 BP 166/66 08/17/24 07:36 Pulse Ox 95 08/17/24 07:36 O2 Del Method Room Air 08/17/24 07:36 O2 Flow Rate 3 08/16/24 11:05 08/16/24 08/17/24 08/17/24 22:59 06:59 14:59 Intake Total 1288.75 / 2688.75 100 / 2788.75 Output Total 1100 / 3850 150 / 4000 Balance 188.75 / -1161.25 -50 / -1211.25 Weight last 48 hrs Weight 241 lb Weight 215 lb Weight 215 lb Physical Exam 2 Neck/C-Spine: OTHER: Supple Resp: OTHER: Bilateral breath sounds, clear to auscultation, normal chest wall expansion Cardio: OTHER: Normal rate and rhythm without murmurs, gallops, or rubs GI: OTHER: Soft, nondistended, nontender Extremity: OTHER: Right leg wrapped in dressing secondary to knee surgery, No noted cyanosis or edema, palpable peripheral pulses. Urinary Catheter Management: Benavidez: Cath Placed During This Visit: yes, but has since been removed by the nurse Reason for Continuing Indwelling Catheter: Decision to DC Catheter Urinary Catheter Date of Insertion: 08/16/24 Urinary Catheter Time of Insertion: 08:29 Date Urinary Catheter Removed: 08/17/24 Time Urinary Catheter Discontinued: 06:37 Data 08/17/24 05:27 08/17/24 05:27 A&P Assessment and plan (1) Right knee DJD: Patient is post-op day #1 of right knee arthroplasty, doing well Patient has been walking with PT this morning with great results Continue Eliquis for DVT PPX, will continue upon discharge Can stop LR 75ml/hr today, will manage with PO fluids (2) Hypertension: Patient with history of hypertension, has been elevated after surgery Continue metoprolol 100mg BID Restart lisinopril 40mg today Plan Reports taking aspirin daily. Will discontinue this in the face of Eliquis. He reports no atherosclerotic disease or particular indication for it. Discussed with him to visit with his primary on discharge regarding need to resume this after Eliquis course is completed. Full code Coding Level of Care Code 44800 Diagnoses Right knee DJD M17.11 Hypertension I10 Time Spent (min) 16 Documented by User: Javi Wallace MD 08/17/24 09:07 Subjective 2 Medications: Reviewed: Yes Physical Exam 2 Urinary Catheter Management: Benavidez: Cath Placed During This Visit: yes, but has since been removed by the nurse Data 08/17/24 05:27 08/17/24 05:27 A&P Assessment and plan (1) Right knee DJD: Patient is post-op day #1 of right knee arthroplasty, doing well Patient has been walking with PT this morning with great results Continue Eliquis for DVT PPX, will continue upon discharge. Risks and benefits were discussed Can stop LR 75ml/hr today, will manage with PO fluids (2) Hypertension: Attestations 2 Medical Necessity Statement*: As per primary Diagnoses Right knee DJD M17.11 Hypertension I10 Time Spent (min) 16
[2024-08-17] MEDS: calcium carb-vit d 600mg/400unit 1 Tablet 1 EACH PO (08:39)
[2024-08-17] MEDS: lisinopril 20 mg Tablet 40 MG PO (08:39)
[2024-08-17] MEDS: multivitamin therapeutic Tablet 1 TAB PO (08:39)
[2024-08-17] MEDS: docusate sodium 100 mg Capsule PO (08:39)
[2024-08-17] MEDS: metoprolol tartrate 50 mg Tablet 100 MG PO (08:40)
[2024-08-17] MEDS: sennosides-docusate Tablet 2 TAB PO (08:40)
[2024-08-17] MEDS: atorvastatin 40 mg Tablet PO (08:41)
[2024-08-17] MEDS: iron polysaccharide complex 150 mg Capsule PO (08:41)
[2024-08-17] MEDS: apixaban 5 mg Tablet 2.5 MG PO (08:41)
[2024-08-17] MEDS: chlorhexidine gluconate 0.12% Btl 473 mL 30 ML MUCOUS MEM (08:41)
[2024-08-17] MEDS: mupirocin oint 22 gm 1 APPLIC NASAL (08:42)
[2024-08-17] MEDS: ceFAZolin 2,000 mg SDV 2000 MG IVP (08:45)
[2024-08-17] MEDS: oxyCODONE 5 mg IR Tab/Cap PO ×2 (08:58→13:03)
--- NOTE | 2024-08-17 09:56 | PC.CHAP ---
Pastoral Care Encounter/Spiritual Assessment Type of Contact [] Declined cook larder visit [] Patient/Family/Request visit [] Outpatient visit [] Follow-up visit [] Physician referral [] Code/Alert [x] Routine visit [] Staff referral [] Actively dying [] Patient sleeping [x] Family support [] [] Out of room [] Palliative care [] [] Receiving care in room [] Pre-surgical visit [] Trauma [] Long length of stay [] ICU visit [] Other: Relational/Emotional Strength [x] Patient feels connected with others/family/visitors/staff [] Distress [] Loneliness/isolation [] Abandonment Spirituality of Patient [x] Person of [place] [] Attends Voodoo of their [place] [x] Believes in Prayer [] Reads Bible or Protestant materials [] There are Spiritual issues to be addressed [employer] Interventions [x] Prayer [x] Active listening [] Non-anxious presence [x] Spiritual/emotional support [] Crisis/trauma care [] Spiritual counseling [] Bereavement support [] Provided bereavement packet [] Provided Bible/devotional materials [] Provided toy/stuffed animal, coloring book to patient or family member [] Provided Communion [] Anointing/[place] [] Salvation [x] Completed spiritual assessment [] Other: Impact on Illness or Injury [] Angry [] Fearful [] Anxious [] Often cries [] Exhaustion [] Unable to work [] Unable to attend spiritism [] Unable to walk/stand [] Unable to read [] Unable to drive [] Unable to eat/drink [] Unable to sleep [] Unable to be with family [] Patient intubated [] Other: Summary Time spent with patient 5 min
--- NOTE | 2024-08-17 13:13 | PM.DCS ---
Discharge Providers Date of Admission: 08/16/24 10:11 Date of Discharge: August 17, 2024 Attending Provider at Admission: Gonzalo Wilson DO Attending Provider at Discharge: Gonzalo Wilson DO Consults: Dr. Wallace?hospitalist Primary Care Provider: Carmelo David DO Diagnoses at Discharge Discharge Diagnosis (1) Right knee DJD: Status: Resolved (2) Hypertension: Status: Acute Reason for Visit Reason for Visit: M17.11 Brief History: Status post right total knee arthroplasty Hospital Course Hospital Course Patient presented to the preoperative holding area with plan for right total knee arthroplasty after patient has been worked up in the outpatient setting for failed conservative treatment of right knee degenerative joint disease. Once cleared by anesthesia for surgery patient subsequently was taken back to the operative suite underwent anesthesia per anesthesia department and then subsequently underwent a right total knee arthroplasty. Procedure was performed without any complications patient was taken to PACU in stable condition patient recovered well in PACU and then was admitted to the floor postoperatively internal medicine was consulted and on board for medical management and assistance with care. Patient received appropriate PT/OT, postoperative antibiotics, postoperative TXA, pain control, postoperative DVT prophylaxis. Elevation and ice. Patient encouraged for knee range of motion allowed weightbearing as tolerated to the operative lower extremity. Dressing was changed as needed, labs were monitored daily. Patient recovered well postoperatively and worked well and progressed well with therapy. It was determined on postoperative day 1 the patient was stable for discharge from an orthopedic standpoint and medicine. Patient was comfortable with discharge and plan was discharged home. Patient received appropriate discharge instructions as well as pain medication and DVT prophylaxis postoperatively. Given appropriate instructions for dressing management. Patient will follow-up with Dr. Wilson/orthopedics in the office in 2 weeks. All questions answered. Understand if there is any issues questions or concerns and contact the office. Physical Exam Narrative: Examination right lower extremity dressings on in place is clean dry and intact not taken down today normal postoperative swelling and tenderness palpation diffusely about the right knee calves are soft and nontender compartments are soft compressible sensations intact light touch distally patient is able to wiggle toes as well as plantarflex and dorsiflex ankle distal pulse palpable. Urinary Catheter Management: Benavidez: Cath Placed During This Visit: yes, but has since been removed by the nurse Reason for Continuing Indwelling Catheter: Decision to DC Catheter Urinary Catheter Date of Insertion: 08/16/24 Urinary Catheter Time of Insertion: 08:29 Date Urinary Catheter Removed: 08/17/24 Time Urinary Catheter Discontinued: 06:37 Discharge Data Studies Completed and Pending Completed Studies During Hospitalization Category Date Time Status XR knee RT 1-2V 72998 Routine Exams 08/16/24 10:28 Completed Pending at discharge Category Date Time Status Basic Metabolic Panel AM LABS Lab 08/18/24 04:00 Ordered Basic Metabolic Panel AM LABS Lab 08/19/24 04:00 Ordered Complete Blood Count w/Auto AM LABS Lab 08/18/24 04:00 Ordered Complete Blood Count w/Auto AM LABS Lab 08/19/24 04:00 Ordered Radiology Impressions Knee X-Ray 08/16/24 10:28 IMPRESSION: Post knee arthroplasty. Laboratory Results WBC 14.70 10^3/uL (3.29-11.43) H 08/17/24 05:27 RBC 3.84 10^6/uL (3.85-5.65) L 08/17/24 05:27 Hgb 12.20 g/dL (11.27-16.99) 08/17/24 05:27 Hct 37.0 % (37-53) 08/17/24 05:27 MCV 96.4 fl (82-101) 08/17/24 05:27 MCH 31.8 pg (27-33) 08/17/24 05:27 MCHC 33.0 g/dL (30-55) 08/17/24 05:27 RDW 12.9 % (12.1-15.1) 08/17/24 05:27 Plt Count 170 10^3/cmm (157-399) 08/17/24 05:27 MPV 9.5 fL (7.4-10.4) 08/17/24 05:27 Neut % (Auto) 83.9 % 08/17/24 05:27 Lymph % (Auto) 8.6 % 08/17/24 05:27 Gray % (Auto) 6.7 % 08/17/24 05:27 Eos % (Auto) 0.1 % 08/17/24 05:27 Baso % (Auto) 0.2 % 08/17/24 05:27 Neut # (Auto) 12.34 10^3/uL (1.8-7.7) H 08/17/24 05:27 Lymph # (Auto) 1.3 10^3/uL (0.8-4.8) 08/17/24 05:27 Gray # (Auto) 1.0 10^3/uL (0.2-0.9) H 08/17/24 05:27 Eos # (Auto) 0.0 10^3/uL (0.0-0.8) 08/17/24 05:27 Baso # (Auto) 0.0 10^3/uL (0.0-0.1) 08/17/24 05:27 Nucleated RBC % (auto) 0 % 08/17/24 05:27 Nucleated RBCs # 0.0 /100WBC 08/17/24 05:27 Sodium 141 mmol/L (136-145) 08/17/24 05:27 Potassium 3.9 mmol/L (3.5-5.1) 08/17/24 05:27 Chloride 107 mmol/L (98-107) 08/17/24 05:27 Carbon Dioxide 24 mmol/L (22-29) 08/17/24 05:27 Anion Gap 13.9 (5-19) 08/17/24 05:27 BUN 22 mg/dL (8-23) 08/17/24 05:27 Creatinine 1.2 mg/dL (0.7-1.2) 08/17/24 05:27 GFR Calculation Not Reportable 08/17/24 05:27 Glucose 111 mg/dL (65-115) 08/17/24 05:27 Calculated Osmolality 296 mOsm/kg (285-295) H 08/17/24 05:27 Calcium 8.5 mg/dL (8.5-10.5) 08/17/24 05:27 Blood Type A Positive 08/16/24 06:35 Rho(D) Type Rh positive 08/16/24 06:35 Antibody Screen Negative 08/16/24 06:35 Vitals Last Vital Signs Temp 98.2 F 08/17/24 11:53 Pulse 55 L 08/17/24 11:53 Resp 16 08/17/24 13:03 BP 177/79 08/17/24 11:53 Pulse Ox 96 08/17/24 11:53 O2 Del Method Room Air 08/17/24 07:36 O2 Flow Rate 3 08/16/24 11:05 Discharge Plan Discharge Patient Disposition: Home Health Service Condition: Stable Prescriptions: New Eliquis 2.5 mg tablet 2.5 mg PO BID 14 Days Qty: 28 0RF calcium carbonate-vitamin D3 [Calcium 600 + D(3)] 600 mg-10 mcg (400 unit) tablet 1 tab PO DAILY 30 Days Qty: 30 0RF hydrocodone-acetaminophen 7.5-325 mg tablet 1 tab PO Q6H PRN (Reason: pain postop) 7 Days Qty: 28 0RF Continued brimonidine 0.2 % drops 1 drp ophthalmic (eye) Q8H lisinopril 40 mg tablet 40 mg PO DAILY atorvastatin 40 mg tablet 40 mg PO DAILY 50 Plus Adult Eye Health 250-5-1 mg capsule 1 cap PO DAILY niacin (inositol niacinate) 400 mg niacin (500 mg) capsule 1 cap PO DAILY glucosamine-chondroitin 900 mg tablet 900 mg PO DAILY multivitamin [Daily Multi-Vitamin] Tablet 1 tab PO DAILY metoprolol tartrate 100 mg tablet 100 mg PO BID Held acetaminophen [Arthritis Pain Relief (acetam)] 650 mg tablet extended release 650 mg PO Q12H Hold Instructions: Resume on 08/31/24. Discontinued aspirin 325 mg tablet 325 mg PO DAILY Discharge Orders: Discharge Order (Routine); Ordered 08/17/24 Ordered By: Gonzalo Wilson Other Ambulatory Orders: DME: Walker (Order) Location: None Selected Ordered By: oGnzalo Wilson Referrals: [facility] Home Care ([facility]) [Outside] Carmelo David DO [Staff Physician] - (We have notified your physician's clinic of the need for a follow-up appointment to be scheduled. If you have not heard from them within the next 2 business days, please call them directly. ) Gonzalo Wilson DO [Physician] - (We have notified your physician's clinic of the need for a follow-up appointment to be scheduled. If you have not heard from them within the next 2 business days, please call them directly. ) Discharge Diet: Regular Discharge Activity: Limit activity as instructed and Use walker/crutches as instructed Patient Instructions: Ondansetron (By mouth), Antacid, Calcium Containing (By mouth), Apixaban (By mouth), Acute Wound Care (DC), Total Knee Replacement (DC), Opioid Safety, Post Anesthesia Care Activity Restrictions/Additional Instructions: Orthopedic discharge instruction Winston Dressing--Keep dressing on and dry. After 3 days you can remove some of the dressing and shower. disconnect battery pack when showering. Winston dressing will stay on until follow up appt in 2 weeks. The battery pack for the dressing will at 5-7 days. Battery pack can be removed and discarded once batteries . Patient may weight-bear as tolerate to the operative extremity Utilize walker as needed Encourage knee range of motion Ice and elevate as needed for pain and swelling Take pain medication as prescribed Take antinausea medication as needed Pain medication can cause constipation. take [id number] stool softeners and or MiraLAX. Take prescribed Eliquis twice daily for the next 14 days for blood clot prevention May supplement for pain with ibuprofen [id number] as needed No baths or soaks Follow-up in the orthopedic office in 2 weeks Contact the office for any questions or concerns Discharge Attestations Time Spent in Discharge Care*: less than 30 min Quality Metrics Clinical Quality Measures [ No reported AMI, CVA or VTE this stay] Coding Level of Care Code Acute Code for Chg Fwd Diagnoses Right knee DJD M17.11 Hypertension I10
== END 2024-08-17 13:55 | disposition home health service (06) ==
LOC: MEDSURG 10:11
PROVIDERS: Physician Assistant; Admitting Provider Student in an Organized Health Care Education/Training Program; PCP Electrodiagnostic Medicine; Visit Provider Student in an Organized Health Care Education/Training Program
PROC: 8E0Y0CZ Robotic Assisted Procedure of Lower Extremity, Open Approach (ICD-10-PCS; CPT 27447; principal; 2024-08-16 07:45)
DX: M17.11 Unilateral primary osteoarthritis, right knee (principal); I10 Essential (primary) hypertension; E78.5 Hyperlipidemia, unspecified
CPT/HCPCS: 27447; 36415; 51702; 73560; 80048; 85025; 86850; 86900; 97110; 97116; 97161; 97165; C1776; G0378; J0131; J0171; J0690; J1100; J1170; J1885; J2250; J2704; J2795; J3370; J7030; J7120

== ENCOUNTER 2024-08-27 03:39 | Emergency (ER) | payer MEDICARE, OTHER, SELFPAY ==
[2024-08-27 03:52] VITALS: BMI 33.0
--- NOTE | 2024-08-27 04:03 | USR_ITS ---
PROCEDURE INFORMATION: Exam: US Duplex Right Lower Extremity Veins, Limited Exam date and time: 08/27/2024 6:08 AM Age: 84 years old Clinical indication: Edema, localized; Lower extremity, right; Prior surgery; Surgery date: <1 month; Surgery type: Knee replacement; Additional info: Swelling, calf pain, post op knee replacement TECHNIQUE: Imaging protocol: Real-time duplex ultrasound of the right extremity with 2-D paez scale, color Doppler flow and spectral waveform analysis including responses to compression and other maneuvers (when performed) with image documentation. Limited exam was focused on the right lower extremity veins. COMPARISON: US ROR venous duplex LE RT 12/06/2023 2:07 PM FINDINGS: The common femoral, femoral, popliteal, posterior tibial and peroneal veins are patent. There is appropriate compression and augmentation. Doppler interogation reveals venous blood flow. US/[place] [id number] IMPRESSION: No evidence of deep venous thrombosis.
[2024-08-27 04:27] LABS: Basophils % 0.4 %; Eosinophils # 0.2 10^3/uL (0.0-0.8); Eosinophils % 2.4 %; Lymphocytes # 1.4 10^3/uL (0.8-4.8); Lymphocytes % 18.7 %; Mean Corpuscular HGB Conc 32.3 g/dL (30-55); Mean Corpuscular Hemoglobin 31.5 pg (27-33); Mean Corpuscular Volume 97.5 fl (82-101); Mean Platelet Volume 8.8 fL (7.4-10.4); Monocytes # 0.8 10^3/uL (0.2-0.9); Monocytes % 10.9 %; Neutrophils # 5.01 10^3/uL (1.8-7.7); Neutrophils % 67.3 %; Nucleated Red Blood Cells % 0 %; Platelet Count 298 10^3/cmm (157-399); Red Blood Count 3.59 10^6/uL (3.85-5.65); Red Cell Distribution Width 13.2 % (12.1-15.1); White Blood Count 7.44 10^3/uL (3.29-11.43)
[2024-08-27] MEDS: ondansetron 2 mg/ML SDV 2 mL 4 MG IVP (04:27)
[2024-08-27] MEDS: HYDROmorphone 1 mg/mL INJ 1 mL 0.5 MG IVP (04:27)
[2024-08-27 04:47] LABS: Anion Gap 13.9 (5-19); Blood Urea Nitrogen 25 mg/dL (8-23); Calcium 8.7 mg/dL (8.5-10.5); Carbon Dioxide 27 mmol/L (22-29); Chloride 102 mmol/L (98-107); Creatinine Clr Calc Pharmacy 57.4162; Glucose 123 mg/dL (65-115); Lactic Sepsis W/Reflex 1.4 mmol/L (0.5-2.2); Osmolality Calculated 294 mOsm/kg (285-295); Potassium 3.9 mmol/L (3.5-5.1); Sodium 139 mmol/L (136-145)
--- NOTE | 2024-08-27 05:55 | W.ED.SKABFB ---
Documented by User: Aram Spears MD 08/27/24 05:59 HPI - Skin/Abscess/Foreign Bdy General: Chief complaint: Skin/Abscess/Foreign Body Stated complaint: red spotting post op, pain deep and worse Time Seen by Provider: 08/27/24 03:55 History of Present Illness: This patient is an 84-year-old white male brought in by his son. Patient has developed a red rash over the right lower leg and pain throughout the leg. He had a right total knee replacement done on the ninth of this month here. He has not had a fever. No chest pain or shortness of breath. Related Data Home Medications Medication Instructions Recorded Confirmed acetaminophen 650 mg 650 mg PO Q12H 07/04/24 08/15/24 tablet,extended release (Arthritis Pain Relief (acetaminophen) ER) antiarthritic combination no.2 900 900 mg PO DAILY 07/04/24 08/15/24 mg tablet (glucosamine-chondroitin) atorvastatin 40 mg tablet 40 mg PO DAILY 07/04/24 08/15/24 brimonidine 0.2 % eye drops 1 drp ophthalmic (eye) Q8H 07/04/24 08/15/24 lisinopril 40 mg tablet 40 mg PO DAILY 07/04/24 08/15/24 multivitamin (Daily Multi-Vitamin 1 tab PO DAILY 07/04/24 08/15/24 tablet) niacin 400 mg (inositol niacinate 1 cap PO DAILY 07/04/24 08/15/24 500 mg) capsule vit C,E,zinc,copper-fimog1b 250 1 cap PO DAILY 07/04/24 08/15/24 mg-lutein 5 mg-zeaxanthin 1 mg capsule (50 Plus Adult Eye Health) metoprolol tartrate 100 mg tablet 100 mg PO BID 08/07/24 08/15/24 Previous Rx's Medication Instructions Recorded apixaban 2.5 mg tablet (Eliquis) 2.5 mg PO BID 2 weeks #28 tabs 08/16/24 calcium 600 mg (as 1 tab PO DAILY Bone health and 08/16/24 carbonate)-vitamin D3 10 mcg (400 healing 30 days #30 tabs unit) tablet (Calcium 600 + D(3)) cephalexin 500 mg capsule 500 mg PO TID 7 days #21 caps 08/27/24 Allergies Allergy/AdvReac Type Severity Reaction Status Date / Time diphenhydramine Allergy Intermediate confusion Verified 08/16/24 06:32 [From Benadryl Allergy] Sulfa (Sulfonamide Allergy Intermediate ALGY-Hives Verified 08/16/24 06:32 Antibiotics) sulfamethoxazole Allergy Intermediate ALGY-Rash Verified 08/16/24 06:32 [From Bactrim] trimethoprim [From Bactrim] Allergy Intermediate ALGY-Rash Verified 08/16/24 06:32 Review of Systems General: Reports: 10 or more systems reviewed and unremarkable except in HPI and below Skin/Breast: Reports: erythema PFSH ED PFSH: Medical History (Updated 08/27/24 @ 06:46 by Jono Urrutia MD) Hyperlipidemia Hypertension Surgical History (Updated 08/16/24 @ 12:53 by Javi Wallace MD) History of hernia repair Social History (Updated 08/16/24 @ 12:53 by Javi Wallace MD) Smoking and tobacco/nicotine status: never used tobacco/nicotine Alcohol intake: never Substance/Drug Use: never Physical Exam Const: COMMON NORMALS: no acute distress, patient oriented x3 and no limitations GENERAL APPEARANCE: cooperative and comfortable HENMT: COMMON NORMALS: normocephalic, atraumatic, Normal nasal mucous membranes and turbinates present, moist oral mucous membranes and oropharynx normal HEAD & SCALP: normal to inspection, normocephalic and atraumatic FACE & SINUS: normal facial exam NOSE: Normal nasal mucous membranes and turbinates present Eye: COMMON NORMALS: Equal, round and reactive pupils present, EOMs intact bilaterally and conjunctivae normal GENERAL EYE: appearance normal, both eyes and all related structures CONJUNCTIVA: Yes conjunctivae normal PUPIL: Yes Equal, round and reactive pupils present Neck/C-Spine: COMMON NORMALS: supple and no JVD Chest: COMMONS NORMALS: normal inspection of the chest Resp: COMMON NORMALS: normal respiratory effort and clear to auscultation bilaterally AUSCULTATION: clear to auscultation bilaterally Cardio: COMMON NORMALS: no JVD, regular rate, regular rhythm, No gallops present (Cardio), No murmurs present (Cardio) and No rub (Cardio) RATE: regular rate RHYTHM: regular rhythm GI: COMMON NORMALS: Normal to inspection, nondistended, normoactive bowel sounds present, Soft to palpation and non-tender AUSCULTATION: Yes normoactive bowel sounds PALPATION: Yes Soft to palpation : COMMON NORMALS: Yes no CVA tenderness BLADDER/KIDNEY EXAM: Yes no CVA tenderness Back/Pelvis: COMMON NORMALS: no CVA tenderness and thoracic and lumbar spine normal to inspection Extremity: COMMON NORMALS: normal to inspection NARRATIVE EXTREMITY EXAM: Right calf tenderness. Diffuse swelling of the right lower extremity. Neuro: COMMON NORMALS: patient oriented x3 and CN's II-XII intact bilaterally Psych: COMMON NORMALS: mental status grossly normal, Normal thought process present and cooperative THOUGHT PROCESS: Normal thought process present Skin: OTHER: There is diffuse erythema about the right lower extremity starting just above the knee and extending down to the ankle. It is warm to touch. He does have a vertical incision over the right knee which is intact. No drainage. Course Vital Signs: Vital signs: Vital Signs Pulse Rate 78 08/27/24 06:58 Blood Pressure 136/79 08/27/24 06:58 Pulse Oximetry 99 08/27/24 06:58 MDM - Skin/Abscess/Foreign Bdy Medicial Decision Making CBC reveals a white blood cell count of 7.4. BMP was normal. Lactic acid 1.4. Patient is receiving 1 g of Ancef IV. A venous duplex scan of the right lower extremity is pending. Patient care will be transferred to Dr. Urrutia. Patient is stable. Lab Data 08/27/24 04:15 08/27/24 04:15 Radiology Impressions Venous Duplex 08/27/24 04:03 IMPRESSION: No evidence of deep venous thrombosis. Laboratory Results WBC 7.44 10^3/uL (3.29-11.43) 08/27/24 04:15 RBC 3.59 10^6/uL (3.85-5.65) L 08/27/24 04:15 Hgb 11.30 g/dL (11.27-16.99) 08/27/24 04:15 Hct 35.0 % (37-53) L 08/27/24 04:15 MCV 97.5 fl (82-101) 08/27/24 04:15 MCH 31.5 pg (27-33) 08/27/24 04:15 MCHC 32.3 g/dL (30-55) 08/27/24 04:15 RDW 13.2 % (12.1-15.1) 08/27/24 04:15 Plt Count 298 10^3/cmm (157-399) 08/27/24 04:15 MPV 8.8 fL (7.4-10.4) 08/27/24 04:15 Neut % (Auto) 67.3 % 08/27/24 04:15 Lymph % (Auto) 18.7 % 08/27/24 04:15 Fannin % (Auto) 10.9 % 08/27/24 04:15 Eos % (Auto) 2.4 % 08/27/24 04:15 Baso % (Auto) 0.4 % 08/27/24 04:15 Neut # (Auto) 5.01 10^3/uL (1.8-7.7) 08/27/24 04:15 Lymph # (Auto) 1.4 10^3/uL (0.8-4.8) 08/27/24 04:15 Fannin # (Auto) 0.8 10^3/uL (0.2-0.9) 08/27/24 04:15 Eos # (Auto) 0.2 10^3/uL (0.0-0.8) 08/27/24 04:15 Baso # (Auto) 0.0 10^3/uL (0.0-0.1) 08/27/24 04:15 Nucleated RBC % (auto) 0 % 08/27/24 04:15 Nucleated RBCs # 0.0 /100WBC 08/27/24 04:15 Sodium 139 mmol/L (136-145) 08/27/24 04:15 Potassium 3.9 mmol/L (3.5-5.1) 08/27/24 04:15 Chloride 102 mmol/L (98-107) 08/27/24 04:15 Carbon Dioxide 27 mmol/L (22-29) 08/27/24 04:15 Anion Gap 13.9 (5-19) 08/27/24 04:15 BUN 25 mg/dL (8-23) H 08/27/24 04:15 Creatinine 1.2 mg/dL (0.7-1.2) 08/27/24 04:15 GFR Calculation Not Reportable 08/27/24 04:15 Glucose 123 mg/dL (65-115) H 08/27/24 04:15 Calculated Osmolality 294 mOsm/kg (285-295) 08/27/24 04:15 Lactic Acid 1.4 mmol/L (0.5-2.2) 08/27/24 04:15 Calcium 8.7 mg/dL (8.5-10.5) 08/27/24 04:15 C-Reactive Protein 6.2 mg/L (0.0-4.9) H 08/27/24 04:15 Discharge Plan Discharge Patient Disposition: Home Clinical Impression: Cellulitis Condition: Stable Prescriptions: New cephalexin 500 mg capsule 500 mg PO TID 7 Days Qty: 21 0RF No Action brimonidine 0.2 % drops 1 drp ophthalmic (eye) Q8H lisinopril 40 mg tablet 40 mg PO DAILY atorvastatin 40 mg tablet 40 mg PO DAILY 50 Plus Adult Eye Health 250-5-1 mg capsule 1 cap PO DAILY niacin (inositol niacinate) 400 mg niacin (500 mg) capsule 1 cap PO DAILY glucosamine-chondroitin 900 mg tablet 900 mg PO DAILY multivitamin [Daily Multi-Vitamin] Tablet 1 tab PO DAILY acetaminophen [Arthritis Pain Relief (acetam)] 650 mg tablet extended release 650 mg PO Q12H Hold Instructions: Resume on 08/31/24. metoprolol tartrate 100 mg tablet 100 mg PO BID Eliquis 2.5 mg tablet 2.5 mg PO BID 14 Days Qty: 28 0RF calcium carbonate-vitamin D3 [Calcium 600 + D(3)] 600 mg-10 mcg (400 unit) tablet 1 tab PO DAILY 30 Days Qty: 30 0RF Discharge Orders: Discharge ED (Routine); Ordered 08/27/24 Ordered By: Jono Urrutia Referrals: Carmelo David DO [Primary Care Provider] - Gonzalo Wilson DO [Physician] - 4-7 days Discharge Diet: Advance as tolerated Discharge Activity: Resume usual activity Patient Instructions: Cellulitis (ED) Coding Level of Care Code ED [employer] for [employer] Documented by User: Jono Urrutia MD 08/27/24 07:13 HPI - Skin/Abscess/Foreign Bdy General: Chief complaint: Skin/Abscess/Foreign Body Stated complaint: red spotting post op, pain deep and worse Time Seen by Provider: 08/27/24 03:55 Related Data Home Medications Medication Instructions Recorded Confirmed acetaminophen 650 mg 650 mg PO Q12H 07/04/24 08/15/24 tablet,extended release (Arthritis Pain Relief (acetaminophen) ER) antiarthritic combination no.2 900 900 mg PO DAILY 07/04/24 08/15/24 mg tablet (glucosamine-chondroitin) atorvastatin 40 mg tablet 40 mg PO DAILY 07/04/24 08/15/24 brimonidine 0.2 % eye drops 1 drp ophthalmic (eye) Q8H 07/04/24 08/15/24 lisinopril 40 mg tablet 40 mg PO DAILY 07/04/24 08/15/24 multivitamin (Daily Multi-Vitamin 1 tab PO DAILY 07/04/24 08/15/24 tablet) niacin 400 mg (inositol niacinate 1 cap PO DAILY 07/04/24 08/15/24 500 mg) capsule vit C,E,zinc,copper-oldoe9t 250 1 cap PO DAILY 07/04/24 08/15/24 mg-lutein 5 mg-zeaxanthin 1 mg capsule (50 Plus Adult Eye Health) metoprolol tartrate 100 mg tablet 100 mg PO BID 08/07/24 08/15/24 Previous Rx's Medication Instructions Recorded apixaban 2.5 mg tablet (Eliquis) 2.5 mg PO BID 2 weeks #28 tabs 08/16/24 calcium 600 mg (as 1 tab PO DAILY Bone health and 08/16/24 carbonate)-vitamin D3 10 mcg (400 healing 30 days #30 tabs unit) tablet (Calcium 600 + D(3)) cephalexin 500 mg capsule 500 mg PO TID 7 days #21 caps 08/27/24 Allergies Allergy/AdvReac Type Severity Reaction Status Date / Time diphenhydramine Allergy Intermediate confusion Verified 08/16/24 06:32 [From Benadryl Allergy] Sulfa (Sulfonamide Allergy Intermediate ALGY-Hives Verified 08/16/24 06:32 Antibiotics) sulfamethoxazole Allergy Intermediate ALGY-Rash Verified 08/16/24 06:32 [From Bactrim] trimethoprim [From Bactrim] Allergy Intermediate ALGY-Rash Verified 08/16/24 06:32 [facility] PFSH: Medical History (Updated 08/27/24 @ 06:46 by Jono Urrutia MD) Hyperlipidemia Hypertension Surgical History (Updated 08/16/24 @ 12:53 by Javi Wallace MD) History of hernia repair Social History (Updated 08/16/24 @ 12:53 by Javi Wallace MD) Smoking and tobacco/nicotine status: never used tobacco/nicotine Alcohol intake: never Substance/Drug Use: never Course Vital Signs: Vital signs: Vital Signs Pulse Rate 78 08/27/24 06:58 Blood Pressure 136/79 08/27/24 06:58 Pulse Oximetry 99 08/27/24 06:58 MDM - Skin/Abscess/Foreign Bdy Medicial Decision Making CBC reveals a white blood cell count of 7.4. BMP was normal. Lactic acid 1.4. Patient is receiving 1 g of Ancef IV. A venous duplex scan of the right lower extremity is pending. Patient care will be transferred to Dr. Urrutia. Patient is stable. Ultrasound here shows no DVT he has no signs septic joint he stable for discharge he has follow-up with orthopedics on Wednesday return if worsening Lab Data 08/27/24 04:15 08/27/24 04:15 Radiology Impressions Venous Duplex 08/27/24 04:03 IMPRESSION: No evidence of deep venous thrombosis. Laboratory Results WBC 7.44 10^3/uL (3.29-11.43) 08/27/24 04:15 RBC 3.59 10^6/uL (3.85-5.65) L 08/27/24 04:15 Hgb 11.30 g/dL (11.27-16.99) 08/27/24 04:15 Hct 35.0 % (37-53) L 08/27/24 04:15 MCV 97.5 fl (82-101) 08/27/24 04:15 MCH 31.5 pg (27-33) 08/27/24 04:15 MCHC 32.3 g/dL (30-55) 08/27/24 04:15 RDW 13.2 % (12.1-15.1) 08/27/24 04:15 Plt Count 298 10^3/cmm (157-399) 08/27/24 04:15 MPV 8.8 fL (7.4-10.4) 08/27/24 04:15 Neut % (Auto) 67.3 % 08/27/24 04:15 Lymph % (Auto) 18.7 % 08/27/24 04:15 Fannin % (Auto) 10.9 % 08/27/24 04:15 Eos % (Auto) 2.4 % 08/27/24 04:15 Baso % (Auto) 0.4 % 08/27/24 04:15 Neut # (Auto) 5.01 10^3/uL (1.8-7.7) 08/27/24 04:15 Lymph # (Auto) 1.4 10^3/uL (0.8-4.8) 08/27/24 04:15 Fannin # (Auto) 0.8 10^3/uL (0.2-0.9) 08/27/24 04:15 Eos # (Auto) 0.2 10^3/uL (0.0-0.8) 08/27/24 04:15 Baso # (Auto) 0.0 10^3/uL (0.0-0.1) 08/27/24 04:15 Nucleated RBC % (auto) 0 % 08/27/24 04:15 Nucleated RBCs # 0.0 /100WBC 08/27/24 04:15 Sodium 139 mmol/L (136-145) 08/27/24 04:15 Potassium 3.9 mmol/L (3.5-5.1) 08/27/24 04:15 Chloride 102 mmol/L (98-107) 08/27/24 04:15 Carbon Dioxide 27 mmol/L (22-29) 08/27/24 04:15 Anion Gap 13.9 (5-19) 08/27/24 04:15 BUN 25 mg/dL (8-23) H 08/27/24 04:15 Creatinine 1.2 mg/dL (0.7-1.2) 08/27/24 04:15 GFR Calculation Not Reportable 08/27/24 04:15 Glucose 123 mg/dL (65-115) H 08/27/24 04:15 Calculated Osmolality 294 mOsm/kg (285-295) 08/27/24 04:15 Lactic Acid 1.4 mmol/L (0.5-2.2) 08/27/24 04:15 Calcium 8.7 mg/dL (8.5-10.5) 08/27/24 04:15 C-Reactive Protein 6.2 mg/L (0.0-4.9) H 08/27/24 04:15 All radiology interpretation(s) finalized by discharge Discharge Plan Discharge Patient Disposition: Home Clinical Impression: Cellulitis Condition: Stable Prescriptions: New cephalexin 500 mg capsule 500 mg PO TID 7 Days Qty: 21 0RF No Action brimonidine 0.2 % drops 1 drp ophthalmic (eye) Q8H lisinopril 40 mg tablet 40 mg PO DAILY atorvastatin 40 mg tablet 40 mg PO DAILY 50 Plus Adult Eye Health 250-5-1 mg capsule 1 cap PO DAILY niacin (inositol niacinate) 400 mg niacin (500 mg) capsule 1 cap PO DAILY glucosamine-chondroitin 900 mg tablet 900 mg PO DAILY multivitamin [Daily Multi-Vitamin] Tablet 1 tab PO DAILY acetaminophen [Arthritis Pain Relief (acetam)] 650 mg tablet extended release 650 mg PO Q12H Hold Instructions: Resume on 08/31/24. 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
[2024-08-27 06:23] LABS: C Reactive Protein 6.2 mg/L (0.0-4.9)
[2024-08-27] MEDS: ceFAZolin 2,000 mg SDV 2000 MG IVP (06:38)
[2024-08-27 06:58] VITALS: BP 136/79; PULSE 78; O2SAT 99
== END 2024-08-27 06:59 | disposition home or self-care (01) ==
PROVIDERS: Emergency Medicine; Emergency Provider Emergency Medicine; PCP Electrodiagnostic Medicine
DX: L03.115 Cellulitis of right lower limb (principal); Z79.01 Long term (current) use of anticoagulants; E78.5 Hyperlipidemia, unspecified; I10 Essential (primary) hypertension
CPT/HCPCS: 36415; 80048; 83605; 85025; 86140; 87040; 93971; 96374; 96375; 99285; J0690; J1170; J2405

== ENCOUNTER → 2024-08-29 11:24 | Outpatient (BNVA) | payer MEDICARE, OTHER, SELFPAY | PROVIDERS: PCP Electrodiagnostic Medicine; Visit Provider Physician Assistant | DX: Z96.651 Presence of right artificial knee joint (principal); Z98.890 Other specified postprocedural states | CPT/HCPCS: 73560; 73565; 99024 ==

== ENCOUNTER → 2024-09-05 15:16 | Outpatient (BNVA) | payer MEDICARE, OTHER, SELFPAY | PROVIDERS: PCP Electrodiagnostic Medicine; Visit Provider Student in an Organized Health Care Education/Training Program | DX: Z96.652 Presence of left artificial knee joint (principal) | CPT/HCPCS: 73560; 73565; 99024 ==

== ENCOUNTER 2024-09-08 06:00 | Outpatient (RCR) | payer MEDICARE, OTHER, SELFPAY | END 2024-10-07 23:59 | disposition home or self-care (01) | LOC: SPT 06:00 | PROVIDERS: PCP Electrodiagnostic Medicine; Visit Provider Student in an Organized Health Care Education/Training Program | DX: Z47.1 Aftercare following joint replacement surgery (principal); Z96.651 Presence of right artificial knee joint | CPT/HCPCS: 97110; 97112; 97161 ==

== ENCOUNTER 2024-10-08 06:00 | Outpatient (RCR) | payer MEDICARE, OTHER, SELFPAY | END 2024-11-07 23:59 | disposition home or self-care (01) | LOC: SPT 06:00 | PROVIDERS: PCP Electrodiagnostic Medicine; Visit Provider Student in an Organized Health Care Education/Training Program | DX: Z47.1 Aftercare following joint replacement surgery (principal); Z96.651 Presence of right artificial knee joint | CPT/HCPCS: 97110; 97112; 97164 ==

== ENCOUNTER → 2024-10-10 10:42 | Outpatient (BNVA) | payer MEDICARE, OTHER, SELFPAY | PROVIDERS: PCP Electrodiagnostic Medicine; Visit Provider Student in an Organized Health Care Education/Training Program | DX: Z96.651 Presence of right artificial knee joint (principal) | CPT/HCPCS: 73560; 73565; 99024 ==

== ENCOUNTER 2024-11-08 06:00 | Outpatient (RCR) | payer MEDICARE, OTHER, SELFPAY | END 2024-12-02 23:55 | disposition home or self-care (01) | LOC: SPT 06:00 | PROVIDERS: PCP Electrodiagnostic Medicine; Visit Provider Student in an Organized Health Care Education/Training Program | DX: Z47.1 Aftercare following joint replacement surgery (principal); Z96.651 Presence of right artificial knee joint | CPT/HCPCS: 97110 ==

== ENCOUNTER → 2025-01-09 10:30 | Outpatient (BNVA) | payer MEDICARE, OTHER, SELFPAY | PROVIDERS: PCP Electrodiagnostic Medicine; Visit Provider Student in an Organized Health Care Education/Training Program | DX: Z96.651 Presence of right artificial knee joint (principal) | CPT/HCPCS: 73560; 73565; 99213 ==

== ENCOUNTER → 2025-08-21 09:02 | Outpatient (BNVA) | payer MEDICARE, OTHER, SELFPAY | PROVIDERS: PCP Electrodiagnostic Medicine; Visit Provider Student in an Organized Health Care Education/Training Program | DX: Z96.651 Presence of right artificial knee joint (principal); Z47.1 Aftercare following joint replacement surgery; Z01.89 Encounter for other specified special examinations | CPT/HCPCS: 73560; 73565; 99213 ==